=== PATIENT | male | born 1990 | race African-American/Black ===

== ENCOUNTER 2022-11-09 13:48 | Observation (INO) | payer OTHER ==
[~2022-11-09] VITALS: Ht 165.1 cm; Wt 105.5 kg
[2022-11-09] VITALS (9 sets, daily range): BP systolic 98–159; BP diastolic 44–93; TEMP 98.8–99.2; Ht 165.1 cm; Wt 105.5 kg
[2022-11-09 14:17] LABS: PLATELET COUNT 239 K/uL (142-355)
[2022-11-09 14:26] LABS: PARTIAL THROMBOPLASTIN TIME 27.3 SECONDS (23.9-36.7)
[2022-11-09 14:28] LABS: POTASSIUM 3.5 mmol/L (3.6-5.2)
[2022-11-10 03:35] VITALS: BP 98/52; TEMP 99.5
[2022-11-10 08:00] VITALS: BP 110/63; TEMP 98.6
== END 2022-11-10 09:55 | disposition home or self-care (01) ==
LOC: ED 13:48 → MED/SURG 15:42
PROVIDERS: ADMIT Family Medicine; ATTEND Internal Medicine
DX: R07.89 Other chest pain (principal); E87.6 Hypokalemia; I10 Essential (primary) hypertension; F17.210 Nicotine dependence, cigarettes, uncomplicated
CPT/HCPCS: 36415; 80053; 80307; 81002; 82150; 82550; 83690; 84484; 85027; 85610; 85730; 93005; 96372; 99221; 99284; G0378; J1650